=== PATIENT | female | born 1980 | race Caucasian/White ===

== ENCOUNTER 2017-05-21 13:30 | Emergency (ER) | payer OTHER ==
[~2017-05-21 13:30] MED LIST: ALBUTEROL17 GM INH; PREDNISONE PO; PRILOSEC40 MG PO; TESSALON200 MG PO
== END 2017-05-21 15:41 | disposition left against medical advice (07) ==
LOC: CED 13:30
DX: Z53.21 Procedure and treatment not carried out due to patient leaving prior to being seen by health care provider (principal)